=== PATIENT | male | born 1980 | race African-American/Black ===

== ENCOUNTER 2017-09-08 19:37 | Emergency (ER) | payer MEDICAID ==
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
== END 2017-09-08 21:00 | disposition home or self-care (01) ==
LOC: ER 19:37
DX: T21.03XA Burn of unspecified degree of upper back, initial encounter (principal); E11.9 Type 2 diabetes mellitus without complications; F17.200 Nicotine dependence, unspecified, uncomplicated; X08.8XXA Exposure to other specified smoke, fire and flames, initial encounter; Y93.89 Activity, other specified; Y92.89 Other specified places as the place of occurrence of the external cause; Y99.8 Other external cause status
CPT/HCPCS: 99283; 96372; J1885; Z7502

== ENCOUNTER 2019-03-19 21:24 | Emergency (ER) | payer BC, MEDICAID ==
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
== END 2019-03-19 22:07 | disposition left against medical advice (07) ==
LOC: ER 21:24
DX: M79.641 Pain in right hand (principal); F17.200 Nicotine dependence, unspecified, uncomplicated; V19.3XXA Pedal cyclist (driver) (passenger) injured in unspecified nontraffic accident, initial encounter; Y93.89 Activity, other specified; Y92.89 Other specified places as the place of occurrence of the external cause; Y99.8 Other external cause status
CPT/HCPCS: Z7502